=== PATIENT | female | born 1980 | race Two or more races ===

== ENCOUNTER 2019-04-21 13:38 | Observation (INO) | payer BC ==
--- NOTE | 2019-04-21 13:59 | ER Document Report ---
ED Medical Screen (RME) - General Chief Complaint: Vaginal Bleeding Stated Complaint: BLEEDING WITH Time Seen by Provider: 04/21/19 13:52 Mode of Arrival: Ambulatory Information source: Patient Notes: This 38-year-old female presents the emergency department approximately 7 weeks G1, P0 with reports of vaginal bleeding and abdominal cramping started today. Patient reports she started bleeding today since she inserted a tampon. Denies trauma. She reports she flew from [place] here last night. No other complaints such as fever vomiting diarrhea. I have greeted and performed a rapid initial assessment of this patient. A comprehensive ED assessment and evaluation of the patient, analysis of test results and completion of the medical decision making process will be conducted by additional ED providers. Dictation of this chart was performed using voice recognition software; therefore, there may be some unintended grammatical errors. - Related Data Allergies/Adverse Reactions: No Known Allergies Allergy (Verified 04/21/19 13:52) Physical Exam - Vital signs Vitals: Temp Pulse Resp BP Pulse Ox 98.3 F 99 16 139/80 H 100 04/21/19 13:41 04/21/19 13:41 04/21/19 13:41 04/21/19 13:41 04/21/19 13:41 Course - Vital Signs Vital signs: Temp Pulse Resp BP Pulse Ox 98.3 F 99 16 139/80 H 100 04/21/19 13:41 04/21/19 13:41 04/21/19 13:41 04/21/19 13:41 04/21/19 13:41
[2019-04-21 14:24] LABS: ABSOLUTE MONOCYTES (AUTO) 0.3 10^3/uL (0.1-1.4); ABSOLUTE NEUT (AUTO) 4.2 10^3/uL (1.7-8.2); BASOPHILS % (AUTO) 0.4 % (0-2); EOSINOPHILS % (AUTO) 0.3 % (0-6); HEMATOCRIT 40.4 % (36.0-47.0); HEMOGLOBIN 13.5 g/dL (12.0-15.5); LYMPHOCYTES % (AUTO) 17.7 % (13-45); MEAN CORPUSCULAR HEMOGLOBIN 31.5 pg (27.0-33.4); MEAN CORPUSCULAR HGB CONC 33.4 g/dL (32.0-36.0); MEAN CORPUSCULAR VOLUME 94 fl (80-97); MONOCYTES % (AUTO) 5.6 % (3-13); PLATELET COUNT 237 10^3/uL (150-450); RED BLOOD COUNT 4.27 10^6/uL (3.72-5.28); RED CELL DISTRIBUTION WIDTH 12.8 % (11.5-14.0); TOTAL CELLS COUNTED % (AUTO) 100 %; WHITE BLOOD COUNT 5.6 10^3/uL (4.0-10.5)
[2019-04-21 14:49] LABS: ALBUMIN 4.9 g/dL (3.5-5.0); ALKALINE PHOSPHATASE 50 U/L (38-126); ANION GAP 11 (5-19); ASPARTATE AMINO TRANSFERASE 24 U/L (14-36); BILIRUBIN,TOTAL 0.8 mg/dL (0.2-1.3); BLOOD UREA NITROGEN 11 mg/dL (7-20); CALCIUM 9.8 mg/dL (8.4-10.2); CARBON DIOXIDE 25 mmol/L (22-30); CHLORIDE 101 mmol/L (98-107); GLUCOSE 107 mg/dL (75-110); POTASSIUM 3.9 mmol/L (3.6-5.0); TOTAL PROTEIN 8.2 g/dL (6.3-8.2)
[2019-04-21 15:13] LABS: APPEARANCE,URINE CLEAR; BILIRUBIN,URINE NEGATIVE (NEGATIVE); COLOR,URINE STRAW; GLUCOSE, URINE NEGATIVE (NEGATIVE); KETONES,URINE NEGATIVE (NEGATIVE); LEUKOCYTE ESTERASE,URINE NEGATIVE (NEGATIVE); NITRITE,URINE NEGATIVE (NEGATIVE); PROTEIN,URINE NEGATIVE (NEGATIVE); URINE SPECIFIC GRAVITY 1.004; UROBILINOGEN,URINE NEGATIVE mg/dL (<2.0)
--- NOTE | 2019-04-21 16:46 | RADIOLOGY REPORT (SQ) ---
EXAM DESCRIPTION: U/S OB TRANSVAGINAL W/O DOP COMPLETED DATE/TIME: 04/21/2019 3:00 pm REASON FOR STUDY: preg vag bleed COMPARISON: None. TECHNIQUE: Endovaginal static and realtime grayscale images acquired of the pelvis. Additional selec ace spectral and color Doppler images recorded. All images stored on PACs. bHC,147 CLINICAL DATES: Last menstrual period 03/04/2019 LIMITATIONS: None. FINDINGS: UTERUS: Uterus is 7.3 x 4 x 5 cm in size. Endometrial stripe measures about 11 to 12 mm i n thickness and is somewhat heterogeneous. Cervix is closed. Along the left uterine fundus, an anechoic 3 mm cystic structure is present along the expected course of the interstitial fallopian tube. Gestational sac from the interstitial could not be ex cluded. This finding was discussed with Gina Guzman in the emergency room as a critical finding, 14 45 hours 04/21/2019. RIGHT ADNEXA: Right ovary measures 2.2 x 1.7 x 1.4 cm in size. A 1.5 cm heterogeneous hemorrhagic cy st is present along the right ovary likely the corpus luteum. No adnexal free fluid. No adnexal masses. LEFT ADNEXA: Normal ovary with normal vascular flow. Left ovary 1.6 x 1.3 x 1 cm in size. No adnexal free fluid. No adnexal masses. FREE FLUID: None. OTHER: Patient states last menstrual period 03/04/2019, confirmed in [place] with pregnanc y test in February. IMPRESSION: There is no normal in the uterus. Endometrial stripe is heterogeneous, with a 3 mm anechoic cyst in the expected location of the left interstitial fallopian tube. Interstitial p regnancy could not entirely be excluded. These findings [facility]. Probable right ovary corpus luteum. FOLLOW-UP ULTRASOUND AND SERIAL BHCG LEVELS STRONGLY RECOMMENDED TO ACCURATELY ASSESS STATU S. TECHNICAL DOCUMENTATION: JOB ID: [id number] [email or web address]- All Rights Reserved Reading location - IP/workstation name: [email or web address]
--- NOTE | 2019-04-21 17:36 | ER Document Report ---
ED GI/ - General Chief Complaint: Vaginal Bleeding Stated Complaint: BLEEDING WITH Time Seen by Provider: 04/21/19 13:52 Mode of Arrival: Ambulatory Notes: This is a 38-year-old female G1, P0 presenting to the emergency department with complaints of vaginal bleeding that began this morning. Patient reports she is approximately 7 weeks , states her last menstrual period was on 03/04/2019. She states that when she woke up this morning she noticed some blood on her underwear and then she ended up passing a large blood clot. Patient states that the bleeding has now subsided but she has low abdominal cramping. Patient denies any past medical history, she has no surgical history, she does report having a colonoscopy done 8 years ago but denies any abnormal findings. She denies any drug allergies. She is from [place], just flew in last night and is planning to leave in 3 days. TRAVEL OUTSIDE OF THE [place] IN LAST 30 DAYS: Yes - 11/2018 COUNTRY TRAVELED TO/FROM: [place] - Related Data Allergies/Adverse Reactions: No Known Allergies Allergy (Verified 04/21/19 13:52) Past Medical History - General Information source: Patient - Social History Smoking Status: Never Smoker Chew tobacco use (# tins/day): No Frequency of alcohol use: None Drug Abuse: None Family History: Reviewed & Not Pertinent Patient has suicidal ideation: No Patient has homicidal ideation: No - Medical History Medical History: Negative Surgical Hx: Negative - Immunizations Immunizations up to date: Yes Review of Systems - Review of Systems Constitutional: No symptoms reported EENT: No symptoms reported Cardiovascular: No symptoms reported Respiratory: No symptoms reported Gastrointestinal: Abdominal pain - Low abd cramping Genitourinary: No symptoms reported Female Genitourinary: Vaginal bleeding Musculoskeletal: No symptoms reported Skin: No symptoms reported Hematologic/Lymphatic: No symptoms reported Neurological/Psychological: No symptoms reported Physical Exam - Vital signs Vitals: Temp Pulse Resp BP Pulse Ox 98.3 F 99 16 139/80 H 100 04/21/19 13:41 04/21/19 13:41 04/21/19 13:41 04/21/19 13:41 04/21/19 13:41 - Notes Notes: PHYSICAL EXAMINATION: GENERAL: Well-appearing, well-nourished and in no acute distress. HEAD: Atraumatic, normocephalic. EYES: Pupils equal round and reactive to light, extraocular movements intact, conjunctiva are normal. ENT: Nares patent, oropharynx clear without exudates. Moist mucous membranes. NECK: Normal range of motion, supple without lymphadenopathy LUNGS: Breath sounds clear to auscultation bilaterally and equal. No wheezes rales or rhonchi. HEART: Regular rate and rhythm without murmurs ABDOMEN: Soft, nontender, nondistended abdomen. No guarding, no rebound. No masses appreciated. Female : Normal external genitalia, cervix closed, no cervical motion tenderness, no adnexal tenderness, no obvious abnormal discharge, scant amount of dark red blood in the vaginal vault. Musculoskeletal: Normal range of motion, no pitting or edema. No cyanosis. NEUROLOGICAL: Cranial nerves grossly intact. Normal speech, normal gait. Normal sensory, motor exams PSYCH: Normal mood, normal affect. SKIN: Warm, Dry, normal turgor, no rashes or lesions noted. Course - Re-evaluation Re-evalutation: Patient appears well, nontoxic and is declining the need for any pain medication at this time. Patient's abdomen is soft and nontender. Patient reports the bleeding has stopped. Quantitative hCG is 1140. Unfortunately the transvaginal ultrasound shows a 3 mm abnormality in the left uterine fundus that the radiologist states could possibly be an interstitial . I did call and speak with our on-call COLLEGE SCOUTING COORDINATOR, Dr. Brown who agrees to bring patient in for admission for serial abdominal exams as well as repeat lab work and repeat ultrasound. This was all discussed with patient she was agreeable to same. - Vital Signs Vital signs: Temp Pulse Resp BP Pulse Ox 98.5 F 77 16 100/62 98 04/21/19 22:14 04/21/19 22:14 04/21/19 22:14 04/21/19 22:14 04/21/19 22:14 - Laboratory Result Diagrams: 04/21/19 14:10 04/21/19 14:10 Laboratory results interpreted by me: 04/21/19 04/21/19 14:10 14:10 Beta HCG, Quant 1141.40 H Urine Blood SMALL H Discharge - Discharge Clinical Impression: Vaginal bleeding affecting early , Abnormal finding on ultrasound Condition: Stable Disposition: ADMITTED OBSERVATION Admitting Provider: [facility] Unit Admitted: Post
[2019-04-21 18:56] LABS: BACTERIA (WET MOUNT) 4+ BACTERIA SEEN; RBCS (WET MOUNT) 3+ RBCS SEEN; T.VAGINALIS (WET MOUNT) NO TRICHOMONAS SEEN; WBCS (WET MOUNT) 1+ WBCS SEEN; YEAST (WET MOUNT) NO YEAST SEEN
[2019-04-21 20:22] LABS: CHLAM PCR NOT DETECTED (NOT DETECT)
--- NOTE | 2019-04-22 08:24 | PDOC H&P ---
History of Present Illness Admission Date/PCP: 04/21/19 17:52 Patient complains of: vaginal bleeding, mild lower abdominal cramping History of Present Illness: MEGHAN LIVINGSTON is a 38 year old female at approx 7wks with LMP 03/04/2019. She reports that she flew into [facility] last night and plans to fly back to [place] on Thursday. She did know she was and this morning noted vaginal spotting and did pass a small clot. She came into the ER for evaluation due to spotting with known . This is a desired . Past Medical History LMP: 03/04/2019 Gynecological Infection: No Past Surgical History Past Surgical History: Reports: Other - colonoscopy approx 8yrs ago Social History Information Source: Patient Lives with: Family Smoking Status: Never Smoker Frequency of Alcohol Use: Occasional Hx Recreational Drug Use: No Drugs: None Hx Prescription Drug Abuse: No Family History Family History: Reviewed & Not Pertinent Parental Family History Reviewed: No Children Family History Reviewed: NA Sibling(s) Family History Reviewed.: NA Medication/Allergy Home Medications: No Home Medications 04/21/19 Allergies/Adverse Reactions: No Known Allergies Allergy (Verified 04/21/19 13:52) Review of Systems Constitutional: ABSENT: chills, fever(s), headache(s), weight gain, weight loss Cardiovascular: ABSENT: chest pain, dyspnea on exertion, edema, orthropnea, palpitations Respiratory: ABSENT: cough, hemoptysis Gastrointestinal: ABSENT: abdominal pain, constipation, diarrhea, hematemesis, hematochezia, nausea, vomiting Integumentary: ABSENT: rash, wounds Neurological: ABSENT: abnormal gait, abnormal speech, confusion, dizziness, focal weakness, syncope Hematologic/Lymphatic: ABSENT: easy bleeding, easy bruising Physical Exam - Physical Exam Vital Signs: Temp Pulse Resp BP Pulse Ox 98.9 F 85 16 109/66 100 04/21/19 18:20 04/21/19 18:20 04/21/19 18:20 04/21/19 18:20 04/21/19 18:20 Intake & Output 04/20/19 04/21/19 04/22/19 06:59 06:59 06:59 Weight 99.8 kg General appearance: PRESENT: no acute distress, well-developed, well-nourished Neck exam: PRESENT: full ROM. ABSENT: carotid bruit, JVD, lymphadenopathy, thyromegaly Respiratory exam: PRESENT: clear to auscultation francine, symmetrical, unlabored Cardiovascular exam: PRESENT: RRR. ABSENT: diastolic murmur, rubs, systolic murmur Pulses: PRESENT: normal dorsalis pedis pul, +2 pedal pulses bilateral GI/Abdominal exam: PRESENT: normal bowel sounds, soft. ABSENT: distended, guarding, mass, organolmegaly, rebound, tenderness Rectal exam: PRESENT: deferred Extremities exam: PRESENT: full ROM. ABSENT: calf tenderness, clubbing, pedal edema Neurological exam: PRESENT: alert, awake, oriented to person, oriented to place, oriented to time, oriented to situation, CN II-XII grossly intact. ABSENT: motor sensory deficit Psychiatric exam: PRESENT: appropriate affect, normal mood. ABSENT: homicidal ideation, suicidal ideation Result Laboratory Results: 04/21/19 14:10 04/21/19 14:10 04/21/19 04/21/19 04/21/19 14:10 14:10 14:10 WBC 5.6 RBC 4.27 Hgb 13.5 Hct 40.4 MCV 94 MCH 31.5 MCHC 33.4 RDW 12.8 Plt Count 237 Seg Neutrophils % 76.0 Sodium 137.2 Potassium 3.9 Chloride 101 Carbon Dioxide 25 Anion Gap 11 BUN 11 Creatinine 0.63 Est GFR ( Amer) > 60 Glucose 107 Calcium 9.8 Total Bilirubin 0.8 AST 24 Alkaline Phosphatase 50 Total Protein 8.2 Albumin 4.9 Urine Color Urine Appearance Urine pH Ur Specific [place] Urine Protein Urine Glucose (UA) Urine Ketones Urine Blood Urine Nitrite Ur Leukocyte Esterase Urine RBC (Auto) Blood Type O POSITIVE 04/21/19 14:10 WBC RBC Hgb Hct MCV MCH MCHC RDW Plt Count Seg Neutrophils % Sodium Potassium Chloride Carbon Dioxide Anion Gap BUN Creatinine Est GFR ( Amer) Glucose Calcium Total Bilirubin AST Alkaline Phosphatase Total Protein Albumin Urine Color STRAW Urine Appearance CLEAR Urine pH 7.0 Ur Specific [place] 1.004 Urine Protein NEGATIVE Urine Glucose (UA) NEGATIVE Urine Ketones NEGATIVE Urine Blood SMALL H Urine Nitrite NEGATIVE Ur Leukocyte Esterase NEGATIVE Urine RBC (Auto) 0 Blood Type Impressions: Obstetrics Ultrasound 04/21/19 13:57 IMPRESSION: There is no normal in the uterus. Endometrial stripe is heterogeneous, with a 3 mm anechoic cyst in the expected location of the left interstitial fallopian tube. Interstitial could not entirely be excluded. These findings were discussed with Gina Guzman in the emergency room. Probable right ovary corpus luteum. FOLLOW-UP ULTRASOUND AND SERIAL BHCG LEVELS STRONGLY RECOMMENDED TO ACCURATELY ASSESS STATUS. Status: Imported from PACS Assessment & Plan - Diagnosis (1) of unknown anatomic location Is this a current diagnosis for this admission?: Yes Plan: Ultrasound pictures are suspicous for Left Interstital ectopic . BHCG is significantly less than discriminatory zone and since a desired would like to admit patient to obtain further information. If this is truly an interstitial ectopic outpatient is risky and certainly more risky in a patient that is not local and planning to return to [place] on Thursday. Reviewed need for close eval and monitoring. Unfortunately patient did not arrive to 2nd floor until after 0. Repeat labs ordered and repeat US ordered. Depending on labs may need to delay US until Thursday to get the most information. (2) Vaginal bleeding affecting early Is this a current diagnosis for this admission?: Yes Plan: vaginal bleeding resolved upon report from ER provider. - Time Time Spent: 30 to 50 Minutes Medications reviewed and adjusted accordingly: Yes Anticipated discharge: Home Within: within 72 hours - Inpatient Certification Based on my medical assessment, after consideration of the patient's comorbidities, presenting symptoms, or acuity I expect that the services needed warrant INPATIENT care.: Yes I certify that my determination is in accordance with my understanding of Medicare's requirements for reasonable and necessary INPATIENT services [42 CFR 412.3e].: Yes Medical Necessity: Need Close Monitoring Due to Risk of Patient Decompensation Post Hospital Care: D/C Senior Safety Management Consultant Documentation
--- NOTE | 2019-04-22 14:08 | PDOC PROGRESS REPORT ---
Subjective Progress Note for:: 04/22/19 Subjective:: 38-year-old G1 admitted after positive test and hCG of 1141, emptying and possible interstitial noted on ultrasound-hospital day 1. Patient states she has less bleeding today than yesterday and only mild cramping which is also less than yesterday. Tolerating p.o. well. No issues overnight Reason For Visit: OF UNDERTERMINED LOCATION Physical Exam - Physical Exam Vital Signs: Temp Pulse Resp BP Pulse Ox 98.5 F 65 14 104/64 100 04/22/19 11:08 04/22/19 11:08 04/22/19 07:53 04/22/19 11:08 04/22/19 11:08 Intake & Output 04/21/19 04/22/19 04/23/19 06:59 06:59 06:59 Intake Total 240 Balance 240 Weight 45.8 kg General appearance: PRESENT: no acute distress, cooperative Respiratory exam: PRESENT: clear to auscultation francine Cardiovascular exam: PRESENT: RRR, +S1, +S2 GI/Abdominal exam: PRESENT: normal bowel sounds, soft, other - Non-tender to palpatoin Result Laboratory Results: 04/21/19 14:10 04/21/19 14:10 04/21/19 04/21/19 04/21/19 14:10 14:10 14:10 WBC 5.6 RBC 4.27 Hgb 13.5 Hct 40.4 MCV 94 MCH 31.5 MCHC 33.4 RDW 12.8 Plt Count 237 Seg Neutrophils % 76.0 Sodium 137.2 Potassium 3.9 Chloride 101 Carbon Dioxide 25 Anion Gap 11 BUN 11 Creatinine 0.63 Est GFR ( Amer) > 60 Glucose 107 Calcium 9.8 Total Bilirubin 0.8 AST 24 Alkaline Phosphatase 50 Total Protein 8.2 Albumin 4.9 Urine Color Urine Appearance Urine pH Ur Specific [place] Urine Protein Urine Glucose (UA) Urine Ketones Urine Blood Urine Nitrite Ur Leukocyte Esterase Urine RBC (Auto) Blood Type O POSITIVE 04/21/19 14:10 WBC RBC Hgb Hct MCV MCH MCHC RDW Plt Count Seg Neutrophils % Sodium Potassium Chloride Carbon Dioxide Anion Gap BUN Creatinine Est GFR ( Amer) Glucose Calcium Total Bilirubin AST Alkaline Phosphatase Total Protein Albumin Urine Color STRAW Urine Appearance CLEAR Urine pH 7.0 Ur Specific [place] 1.004 Urine Protein NEGATIVE Urine Glucose (UA) NEGATIVE Urine Ketones NEGATIVE Urine Blood SMALL H Urine Nitrite NEGATIVE Ur Leukocyte Esterase NEGATIVE Urine RBC (Auto) 0 Blood Type Impressions: Obstetrics Ultrasound 04/21/19 13:57 IMPRESSION: There is no normal in the uterus. Endometrial stripe is heterogeneous, with a 3 mm anechoic cyst in the expected location of the left interstitial fallopian tube. Interstitial could not entirely be excluded. These findings were discussed with Gina Guzman in the emergency room. Probable right ovary corpus luteum. FOLLOW-UP ULTRASOUND AND SERIAL BHCG LEVELS STRONGLY RECOMMENDED TO ACCURATELY A SSESS STATUS. Assessment & Plan - Diagnosis (1) Abnormal finding on ultrasound Is this a current diagnosis for this admission?: Yes (2) of unknown anatomic location Is this a current diagnosis for this admission?: Yes (3) Vaginal bleeding affecting early Is this a current diagnosis for this admission?: Yes - Plan Summary Plan Summary: 38 yo G1 w/ of unknown location -VSS -No problems overnight -On admit, positive test and Quant HCG of 1,141 (04/21/19) but no pregancy in utuers on US. US findings concerning for left interstitial preg floresita. -Mild cramping on admit and patient reports less overnight. -Light spotting today which is less than yesterday per patient. -Exam with no pain on palpation of abdomen. -Plan for repeat QUant HCG and US -Stable presently
[2019-04-22 14:15] LABS: ABSOLUTE EOSINOPHILS # (AUTO) 0.1 10^3/uL (0.0-0.6); ABSOLUTE LYMPHOCYTES (AUTO) 1.6 10^3/uL (0.5-4.7); ABSOLUTE MONOCYTES (AUTO) 0.2 10^3/uL (0.1-1.4); ABSOLUTE NEUT (AUTO) 2.3 10^3/uL (1.7-8.2); BASOPHILS % (AUTO) 0.8 % (0-2); EOSINOPHILS % (AUTO) 1.3 % (0-6); HEMATOCRIT 39.9 % (36.0-47.0); HEMOGLOBIN 13.3 g/dL (12.0-15.5); LYMPHOCYTES % (AUTO) 37.8 % (13-45); MEAN CORPUSCULAR HEMOGLOBIN 31.5 pg (27.0-33.4); MEAN CORPUSCULAR HGB CONC 33.3 g/dL (32.0-36.0); MEAN CORPUSCULAR VOLUME 95 fl (80-97); MONOCYTES % (AUTO) 5.8 % (3-13); PLATELET COUNT 221 10^3/uL (150-450); RED BLOOD COUNT 4.21 10^6/uL (3.72-5.28); RED CELL DISTRIBUTION WIDTH 13.1 % (11.5-14.0); SEGMENTED NEUTROPHILS % (AUTO) 54.3 % (42-78); TOTAL CELLS COUNTED % (AUTO) 100 %; WHITE BLOOD COUNT 4.3 10^3/uL (4.0-10.5)
--- NOTE | 2019-04-22 21:48 | RADIOLOGY REPORT (SQ) ---
US PELVIS EXAM DATE: 04/22/2019 4:00 PM CDT HISTORY: Early . Pelvic pain. COMPARISON: 04/21/2019 TECHNIQUE: Grayscale, color Doppler, and spectral Doppler ultrasound images of the pelvis were obtained. FINDINGS: There is a tiny cystic structure in the lower uterine segment which may represent a gestational sac with a mean sac diameter of 0.25 cm corresponding to 5 weeks 0 days of . There is a 7 mm hypoechoic structure in the uterine fundus which may represent a tiny fibroid. The right ovary was not visualized. The left ovary is normal in size and contains normal color Doppler blood flow. No pelvic free fluid. IMPRESSION: 1. Possible intrauterine gestational sac in the lower uterine segment corresponding to 5 weeks 0 days of . No yolk sac or pole is seen at this time. Correlate with hCG values and consider short-term follow-up ultrasound imaging. 2. 7 mm hypoechoic structure in the uterine fundus, nonspecific but may represent a fibroid.
--- NOTE | 2019-04-23 10:53 | PDOC DISCHARGE SUMMARY ---
Impression - Admit/DC Date/PCP Admission Date/Primary Care Provider: 04/21/19 17:52 Discharge Date: 04/23/19 - Discharge Diagnosis (1) Miscarriage Is this a current diagnosis for this admission?: Yes - Assessment Summary: the patient has started bleeding this am. The quant has dropped to 400. This appears to be a miscarriage. She has no pain. We will proceed with discharge home. She will need to followup this week and follow the test weekly to ensure it goes to zero. - Additional Information Resuscitation Status: Full Code Discharge Diet: As Tolerated Discharge Activity: Activity As Tolerated, Balance Activity w/Rest Home Medications: No Home Medications 04/21/19 History of Present Illiness History of Present Illness: MEGHAN LIVINGSTON is a 38 year old female Physical Exam - Physical Exam Vital Signs: Temp Pulse Resp BP Pulse Ox 98.1 F 80 18 107/60 97 04/23/19 07:17 04/23/19 07:17 04/23/19 07:17 04/23/19 07:17 04/23/19 07:17 Intake & Output 04/22/19 04/23/19 04/24/19 06:59 06:59 06:59 Intake Total 240 Balance 240 Weight 45.8 kg Results Laboratory Results: WBC 4.3 10^3/uL (4.0-10.5) 04/22/19 14:02 RBC 4.21 10^6/uL (3.72-5.28) 04/22/19 14:02 Hgb 13.3 g/dL (12.0-15.5) 04/22/19 14:02 Hct 39.9 % (36.0-47.0) 04/22/19 14:02 MCV 95 fl (80-97) 04/22/19 14:02 MCH 31.5 pg (27.0-33.4) 04/22/19 14:02 MCHC 33.3 g/dL (32.0-36.0) 04/22/19 14:02 RDW 13.1 % (11.5-14.0) 04/22/19 14:02 Plt Count 221 10^3/uL (150-450) 04/22/19 14:02 Lymph % (Auto) 37.8 % (13-45) 04/22/19 14:02 [place] % (Auto) 5.8 % (3-13) 04/22/19 14:02 Eos % (Auto) 1.3 % (0-6) 04/22/19 14:02 Baso % (Auto) 0.8 % (0-2) 04/22/19 14:02 Absolute Neuts (auto) 2.3 10^3/uL (1.7-8.2) 04/22/19 14:02 Absolute Lymphs (auto) 1.6 10^3/uL (0.5-4.7) 04/22/19 14:02 Absolute Monos (auto) 0.2 10^3/uL (0.1-1.4) 04/22/19 14:02 Absolute Eos (auto) 0.1 10^3/uL (0.0-0.6) 04/22/19 14:02 Absolute Basos (auto) 0.0 10^3/uL (0.0-0.2) 04/22/19 14:02 Seg Neutrophils % 54.3 % (42-78) 04/22/19 14:02 Sodium 137.2 mmol/L (137-145) 04/21/19 14:10 Potassium 3.9 mmol/L (3.6-5.0) 04/21/19 14:10 Chloride 101 mmol/L (98-107) 04/21/19 14:10 Carbon Dioxide 25 mmol/L (22-30) 04/21/19 14:10 Anion Gap 11 (5-19) 04/21/19 14:10 BUN 11 mg/dL (7-20) 04/21/19 14:10 Creatinine 0.63 mg/dL (0.52-1.25) 04/21/19 14:10 Est GFR ( Amer) > 60 (>60) 04/21/19 14:10 Est GFR (MDRD) Non-Af > 60 (>60) 04/21/19 14:10 Glucose 107 mg/dL (75-110) 04/21/19 14:10 Calcium 9.8 mg/dL (8.4-10.2) 04/21/19 14:10 Total Bilirubin 0.8 mg/dL (0.2-1.3) 04/21/19 14:10 Direct Bilirubin 0.0 mg/dL (0.0-0.4) 04/21/19 14:10 Neonat Total Bilirubin Not Reportable 04/21/19 14:10 Neonat Direct Bilirubin Not Reportable 04/21/19 14:10 Neonat Indirect Bili Not Reportable 04/21/19 14:10 AST 24 U/L (14-36) 04/21/19 14:10 ALT 14 U/L (<35) 04/21/19 14:10 Alkaline Phosphatase 50 U/L (38-126) 04/21/19 14:10 Total Protein 8.2 g/dL (6.3-8.2) 04/21/19 14:10 Albumin 4.9 g/dL (3.5-5.0) 04/21/19 14:10 Beta HCG, Quant 407.26 mIU/mL (0.0-6.15) H 04/22/19 14:02 Total Beta HCG POSITIVE (NEGATIVE) 04/22/19 14:02 Urine Color STRAW 04/21/19 14:10 Urine Appearance CLEAR 04/21/19 14:10 Urine pH 7.0 (5.0-9.0) 04/21/19 14:10 Ur Specific [place] 1.004 04/21/19 14:10 Urine Protein NEGATIVE mg/dL (NEGATIVE) 04/21/19 14:10 Urine Glucose (UA) NEGATIVE mg/dL (NEGATIVE) 04/21/19 14:10 Urine Ketones NEGATIVE mg/dL (NEGATIVE) 04/21/19 14:10 Urine Blood SMALL (NEGATIVE) H 04/21/19 14:10 Urine Nitrite NEGATIVE (NEGATIVE) 04/21/19 14:10 Urine Bilirubin NEGATIVE (NEGATIVE) 04/21/19 14:10 Urine Urobilinogen NEGATIVE mg/dL (<2.0) 04/21/19 14:10 Ur Leukocyte Esterase NEGATIVE (NEGATIVE) 04/21/19 14:10 Urine RBC (Auto) 0 /HPF 04/21/19 14:10 Squamous Epi Cells Auto <1 /HPF 04/21/19 14:10 Urine Mucus (Auto) RARE /LPF 04/21/19 14:10 Urine Ascorbic Acid NEGATIVE (NEGATIVE) 04/21/19 14:10 Bacteria (Wet Prep) 4+ BACTERIA SEEN 04/21/19 18:39 Trichomonas (Wet Prep) NO TRICHOMONAS SEEN 04/21/19 18:39 Vaginal WBC 1+ WBCS SEEN 04/21/19 18:39 Vaginal RBC 3+ RBCS SEEN 04/21/19 18:39 Vaginal Yeast NO YEAST SEEN 04/21/19 18:39 Chlamydia DNA (PCR) NOT DETECTED (NOT DETECT) 04/21/19 18:39 N.gonorrhoeae DNA (PCR) NOT DETECTED (NOT DETECT) 04/21/19 18:39 Blood Type O POSITIVE 04/21/19 14:10 Rhogam Indicated RHOGAM NOT INDICATED 04/21/19 14:10 Impressions: Obstetrics Ultrasound 04/21/19 13:57 IMPRESSION: There is no normal in the uterus. Endometrial stripe is heterogeneous, with a 3 mm anechoic cyst in the expected location of the left interstitial fallopian tube. Interstitial could not entirely be excluded. These findings were discussed with Gina Guzman in the emergency room. Probable right ovary corpus luteum. FOLLOW-UP ULTRASOUND AND SERIAL BHCG LEVELS STRONGLY RECOMMENDED TO ACCURATELY ASSESS STATUS. Transvaginal US 04/22/19 16:00 IMPRESSION: 1. Possible intrauterine gestational sac in the lower uterine segment corresponding to 5 weeks 0 days of . No yolk sac or pole is seen at this time. Correlate with hCG values and consider short-term follow-up ultrasound imaging. 2. 7 mm hypoechoic structure in the uterine fundus, nonspecific but may represent a fibroid. Stroke Is this a Stroke Patient?: No Acute Heart Failure - Is this a Heart Failure Patient?: No
[2019-04-23 12:06] VITALS: BP 102/66
== END 2019-04-23 12:05 | disposition home or self-care (01) ==
LOC: ER 13:38 → EH 17:52 → 2S 04-22 03:31
PROVIDERS: ADMIT Student in an Organized Health Care Education/Training Program; ATTEND Student in an Organized Health Care Education/Training Program
DX: O03.9 Complete or unspecified spontaneous abortion without complication (principal); O36.80X0 Pregnancy with inconclusive fetal viability, not applicable or unspecified; R93.89 Abnormal findings on diagnostic imaging of other specified body structures
CPT/HCPCS: 99285; 86900; 86901; 36415 ×2; 87210; 84702 ×2; 85025 ×2; 80053; 81001; 87491; 87591; 76817 ×2; 93976; G0378 ×3